=== PATIENT | female | born 1975 | race Caucasian/White ===

== ENCOUNTER 2017-07-28 10:20 | Outpatient (CLI) | payer MEDICAID | END 2017-07-28 11:25 | disposition home or self-care (01) | LOC: OBT 10:20 → L-D 10:21 → OBT 11:25 | DX: O62.9 Abnormality of forces of labor, unspecified (principal); O09.522 Supervision of elderly multigravida, second trimester; O34.219 Maternal care for unspecified type scar from previous cesarean delivery; Z3A.38 38 weeks gestation of pregnancy | CPT/HCPCS: Z7500 ==

== ENCOUNTER 2017-07-29 05:31 | Inpatient (IN) | payer MEDICAID ==
[2017-07-29] MEDS: LACTATED RINGER'S 1,000 ML IV ×4 (05:59→22:34)
[2017-07-29] MEDS ORDERED: OXYTOCIN 30 UNITS/LR 500 ML IV ×2 (06:00→14:30)
[2017-07-29] MEDS ORDERED: METHYLERGONOVINE 0.2 MG INJ IM ×2 (06:00→14:30)
[2017-07-29] MEDS ORDERED: MISOPROSTOL 200 MCG TAB PR ×2 (06:00→14:30)
[2017-07-29] MEDS ORDERED: CARBOPROST 250 MCG INJ IM ×2 (06:00→14:30)
[2017-07-29] MEDS ORDERED: CEFAZOLIN 2 GM/50 ML (PMX) 50 ML IV (06:00)
[2017-07-29 06:25] LABS: ADD MAN DIFF? NO
[2017-07-29 06:41] LABS: BASOPHILS % 0.3 % (0.0-2.0); EOSINOPHILS # 0.1 10^3/ul (0.0-0.5); HEMATOCRIT 32.2 % (37.0-47.0); HEMOGLOBIN 10.8 g/dl (12.0-16.0); LYMPHOCYTES # 1.6 10^3/ul (0.8-2.9); LYMPHOCYTES % 23.5 % (15.0-51.0); MEAN CORPUSCULAR HEMOGLOBIN 26.3 pg (29.0-33.0); MEAN CORPUSCULAR HGB CONC 33.5 g/dl (32.0-37.0); MEAN CORPUSCULAR VOLUME 78.3 fl (82.0-101.0); MEAN PLATELET VOLUME 10.6 fl (7.4-10.4); MONOCYTE # 0.5 10^3/ul (0.3-0.9); MONOCYTES % 6.9 % (0.0-11.0); NEUTROPHIL # 4.7 10^3/ul (1.6-7.5); PLATELET COUNT 268 10^3/UL (140-415); RED BLOOD COUNT 4.11 10^6/ul (4.20-5.40)
[2017-07-29] MEDS ORDERED: EPHEDrine SULFATE 50 MG/5 ML SYG (07:00)
[2017-07-29] MEDS ORDERED: OXYTOCIN 30 UNITS/LR 500 ML BAG IV (07:00)
[2017-07-29 07:01] LABS: INR 0.94; PROTIME 12.7 Sec (11.9-14.9)
[2017-07-29 07:02] LABS: PARTIAL THROMBOPLASTIN TIME 25.2 Sec (25.0-35.0)
[2017-07-29] MEDS ORDERED: morphine SULFATE/PF (10 MG/10 ML) INJ (08:53)
[2017-07-29] MEDS ORDERED: BUPIVACAINE 0.75%/DEXT (SPINAL) 2 ML INJ (09:03)
[2017-07-29] MEDS ORDERED: PHENYLephrine (100 MCG/ML) 5ML SYG (09:08)
[2017-07-29 09:24] LABS: HEPATITIS B SURFACE ANTIGEN NEGATIVE (NEGATIVE)
[2017-07-29] MEDS ORDERED: ONDANSETRON 4 MG INJ (09:47)
[2017-07-29] MEDS: OXYTOCIN 30 UNITS/LR 500 ML IV ×4 (10:55→22:11)
[2017-07-29] MEDS ORDERED: FENTAnyl 50 MCG/ML VIAL IV ×2 (11:30)
[2017-07-29] MEDS ORDERED: DIPHENHYDRAMINE 50 MG INJ IV ×2 (11:30)
[2017-07-29] MEDS ORDERED: NALOXONE (0.4 MG/ML) INJ IV (11:30)
[2017-07-29] MEDS ORDERED: METOCLOPRAMIDE 10 MG INJ IV (11:30)
[2017-07-29] MEDS ORDERED: HYDROmorphONE 0.5 MG/0.5 ML SYG IV ×2 (11:30)
[2017-07-29] MEDS ORDERED: KETOROLAC 30 MG INJ IV (11:30)
[2017-07-29] MEDS ORDERED: HYDROmorphONE (0.2 MG/ML) 10ML SYG IV ×2 (11:30)
[2017-07-29] MEDS: ONDANSETRON 4 MG INJ IV ×2 (11:40→17:18)
[2017-07-29] MEDS ORDERED: OXYCODONE/ACETAMINOPHEN (5/325) TAB PO (14:30)
[2017-07-29] MEDS ORDERED: HYDROCODONE/APAP (5/325) TAB PO (14:30)
[2017-07-29] MEDS ORDERED: CEFAZOLIN 1 GM/50 ML (PMX) 50 ML IVPB (14:30)
[2017-07-29 15:08] LABS: RAPID PLASMA REAGIN NONREACTIVE (NR)
[2017-07-29] MEDS: LANOLIN 7 GM TUBE TOP (17:18)
[2017-07-29] MEDS: CEFAZOLIN 1 GM/50 ML (PMX) 50 ML IVPB (17:18)
[2017-07-29] MEDS: SENNA/DOCUSATE NA (8.6MG/50MG) TAB PO (20:37)
[2017-07-30] MEDS: KETOROLAC 30 MG INJ IV ×2 (01:53→09:26)
[2017-07-30] MEDS: OXYTOCIN 30 UNITS/LR 500 ML IV (02:11)
[2017-07-30] MEDS: LACTATED RINGER'S 1,000 ML IV (05:33)
[2017-07-30] MEDS: SENNA/DOCUSATE NA (8.6MG/50MG) TAB PO ×2 (08:04→20:55)
[2017-07-30 09:37] LABS: ADD MAN DIFF? NO
[2017-07-30 09:40] LABS: WHITE BLOOD COUNT 9.4 10^3/ul (4.8-10.8)
[2017-07-30 09:40] LABS: BASOPHILS % 0.4 % (0.0-2.0); EOSINOPHILS # 0.1 10^3/ul (0.0-0.5); EOSINOPHILS % 0.8 % (0.0-7.0); HEMOGLOBIN 9.3 g/dl (12.0-16.0); LYMPHOCYTES # 1.3 10^3/ul (0.8-2.9); LYMPHOCYTES % 13.4 % (15.0-51.0); MEAN CORPUSCULAR HEMOGLOBIN 25.9 pg (29.0-33.0); MEAN CORPUSCULAR HGB CONC 33.2 g/dl (32.0-37.0); MEAN PLATELET VOLUME 10.7 fl (7.4-10.4); MONOCYTE # 0.6 10^3/ul (0.3-0.9); MONOCYTES % 6.3 % (0.0-11.0); NEUTROPHIL # 7.4 10^3/ul (1.6-7.5); NEUTROPHILS % 78.8 % (39.0-77.0); PLATELET COUNT 242 10^3/UL (140-415); RED BLOOD COUNT 3.59 10^6/ul (4.20-5.40); RED CELL DISTRIBUTION WIDTH 15.3 % (11.5-14.5)
[2017-07-30] MEDS: IBUPROFEN 600 MG TAB PO ×3 (12:19→23:32)
[2017-07-30] MEDS: HYDROCODONE/APAP (5/325) TAB PO (21:21)
[2017-07-31] MEDS: IBUPROFEN 600 MG TAB PO ×3 (05:28→18:22)
[2017-07-31] MEDS: SENNA/DOCUSATE NA (8.6MG/50MG) TAB PO ×2 (10:04→21:23)
[2017-07-31] MEDS ORDERED: VITAMIN A & D 5 GM OINT PACKET TOP (17:16)
[2017-08-01] MEDS: IBUPROFEN 600 MG TAB PO ×3 (00:01→12:14)
[2017-08-01] MEDS: OXYCODONE/ACETAMINOPHEN (5/325) TAB PO (05:07)
[2017-08-01] MEDS: SENNA/DOCUSATE NA (8.6MG/50MG) TAB PO (10:01)
[2017-08-01] MEDS: DIPHTH/TET/ACEL PERTUSS (ADULT) 0.5 ML VIAL IM* ×2 (10:02→14:00)
== END 2017-08-01 17:28 | disposition home or self-care (01) | DRG 766 ==
LOC: L-D 05:31 → PP1 12:44
PROVIDERS: Obstetrics & Gynecology
PROC: 10D00Z1 Extraction of Products of Conception, Low, Open Approach (ICD-10-PCS; principal; 2017-07-29 07:30)
PROC: 0UL70ZZ Occlusion of Bilateral Fallopian Tubes, Open Approach (ICD-10-PCS; 2017-07-29 07:30)
PROC: 3E033VJ Introduction of Other Hormone into Peripheral Vein, Percutaneous Approach (ICD-10-PCS; 2017-07-29 07:30)
DX: O34.211 Maternal care for low transverse scar from previous cesarean delivery (principal); O99.214 Obesity complicating childbirth; E66.01 Morbid (severe) obesity due to excess calories; Z68.33 Body mass index [BMI] 33.0-33.9, adult; Z30.2 Encounter for sterilization; Z3A.39 39 weeks gestation of pregnancy; Z37.0 Single live birth
CPT/HCPCS: 85025; 85610; 85730; 86592; 86850; 86900; 86901; 87340; 88305; 90715; 94760; 99464